=== PATIENT | female | born 1945 | race Caucasian/White ===

== ENCOUNTER 2017-02-20 07:30 | Inpatient (IN) | payer MEDICARE, BC ==
[2017-02-20] MEDS ORDERED: Tranexamic Acid 1,000 MG in Sodium Chloride 0.9% 50 ML IV SCH (10:15)
[2017-02-21] MEDS ORDERED: Gabapentin 300 MG Cap PO ONE (09:00)
[2017-02-21] MEDS ORDERED: Lactated Ringers 1,000 ML IV SCH (09:00)
[2017-02-21] MEDS ORDERED: Scopolamine 1.5 MG Transdermal Patch TRDERM SCH (09:00)
[2017-02-21] MEDS ORDERED: Povidone-Iodine 10% Soln 118.25 ML Bottle ONE (09:18)
[2017-02-21] MEDS ORDERED: Propofol 200 MG/20 ML SDV ONE ×2 (09:18→11:52)
[2017-02-21] MEDS ORDERED: fentaNYL 100 MCG/2 ML SDV ONE (09:18)
[2017-02-21] MEDS ORDERED: Midazolam 1 MG/ML 2 ML SDV ONE (09:18)
[2017-02-21] MEDS ORDERED: Gentamicin 40 MG/ML 2 ML Vial ONE (09:20)
[2017-02-21] MEDS ORDERED: ceFAZolin 2 GM in Sodium Chloride 0.9% 50 ML IV ONE (09:30)
[2017-02-21] MEDS ORDERED: Ketamine 500 MG/5 ML MDV IV ONE (10:15)
[2017-02-21] MEDS ORDERED: Ropivacaine 49.25 ML, Ketorolac 30 MG, EPINEPHrine 0.5 MG, cloNIDine 80 MCG, Sodium Chl... INJECT ONE ×5 (10:15)
[2017-02-21] MEDS: Tranexamic Acid 1,000 MG in Sodium Chloride 0.9% 50 ML IV SCH ×2 (10:50→12:57)
[2017-02-21] MEDS ORDERED: Lactated Ringers 1,000 ML ONE (12:19)
[2017-02-21] MEDS ORDERED: Bisacodyl 5 MG Tab PO PRN ×2 (12:45→13:41)
[2017-02-21] MEDS ORDERED: Ketorolac 30 MG/ML SDV IVPUSH PRN ×2 (12:45→13:41)
[2017-02-21] MEDS ORDERED: Aluminum Hydroxide/Magnesium Hydroxide/Simethicone Susp 30 ML Cup PO PRN ×2 (12:45→13:41)
[2017-02-21] MEDS ORDERED: Zolpidem 5 MG Tab PO PRN ×2 (12:45→13:41)
[2017-02-21] MEDS ORDERED: ceFAZolin 2 GM in Sodium Chloride 0.9% 50 ML IV SCH (12:45)
[2017-02-21] MEDS ORDERED: Morphine 2 MG/ML Syringe IVPUSH PRN ×2 (12:45→13:41)
[2017-02-21] MEDS ORDERED: traMADol 50 MG Tab PO PRN ×2 (12:45→13:41)
[2017-02-21] MEDS ORDERED: Sennosides 8.6 MG Tab PO PRN ×2 (12:45→13:41)
[2017-02-21] MEDS ORDERED: diphenhydrAMINE 50 MG/ML SDV IVPUSH PRN ×2 (12:45→13:41)
[2017-02-21] MEDS ORDERED: Magnesium Hydroxide 400 MG/5 ML Susp 30 ML Cup PO PRN ×2 (12:45→13:41)
[2017-02-21] MEDS ORDERED: Ondansetron 4 MG/2 ML SDV IVPUSH PRN ×2 (12:45→13:41)
[2017-02-21] MEDS ORDERED: Naloxone 0.4 MG/ML SDV IVPUSH PRN ×2 (12:45→13:41)
[2017-02-21] MEDS ORDERED: Acetaminophen 1,000 MG in Premix Bag 1 BAG IV ONE ×2 (12:45→14:30)
[2017-02-21] MEDS ORDERED: oxyCODONE 5 MG Tab PO PRN (12:45)
--- NOTE | 2017-02-21 13:43 | CR ---
Knee 1V or 2V Lt INDICATION: post op FINDINGS: Postoperative changes medial compartment hemiarthroplasty. Minimal hypertrophic change franklin llofemoral and lateral compartments. Negative for postoperative purposes.
[2017-02-21] MEDS ORDERED: OMEGA PO SCH (14:00)
[2017-02-21] MEDS ORDERED: FATTY ACIDS PO SCH (14:00)
[2017-02-21] MEDS ORDERED: VERIFY SCOPOLAMINE PATCH TOP SCH (14:00)
[2017-02-21] MEDS: Fish Oil/Omega-3 Fatty Acids 1 Gm Cap PO SCH ×2 (16:10→20:34)
[2017-02-21] MEDS: ceFAZolin 2 GM in Sodium Chloride 0.9% 50 ML IV SCH (17:07)
[2017-02-21] MEDS: oxyCODONE 5 MG Tab PO PRN (17:55)
--- NOTE | 2017-02-21 18:36 | OR ---
DATE OF PROCEDURE: 02/21/2017 PREOPERATIVE DIAGNOSIS: Left knee primary osteoarthritis. POSTOPERATIVE DIAGNOSIS: Left knee primary osteoarthritis. PROCEDURE: Left knee medial compartment arthroplasty. RECOOPERER: Junie Mesa NP. ANESTHESIA: Spinal plus conscious sedation. FLUID: Lactated Ringer solution. ESTIMATED BLOOD LOSS: 50 mL. COMPLICATIONS: None. SPECIMEN: None. DISCHARGE DISPOSITION: Stable to PACU. INSTRUMENTATION: Biomet Emmet knee, small femur size C tibia and 4 mm polyethylene insert. INDICATIONS: The patient is seen preoperatively in the clinic. She had failed nonoperative treatment. Preoperative imaging confirmed the above-mentioned diagnosis. Risks and benefits of the procedure were explained to the patient. Informed consent was obtained. DESCRIPTION OF PROCEDURE: The patient was seen preoperatively by myself and the Anesthesia Staff in the preoperative holding area where the operative site was marked. She was brought to the operative suite by the anesthesia staff where spinal anesthesia plus conscious sedation was administered. A well-padded tourniquet was placed on the left thigh. The right lower extremity was placed in the stirrup. All extremities were found to be well padded. The left lower extremity was then prepped and draped in a sterile manner. Time-out was called identifying the correct patient, correct procedure, the correct site, and antibiotics had begun within appropriate period of time. The left lower extremity was exsanguinated. Tourniquet was raised to 300 mmHg for 42 minutes and let down during cementing. A medial parapatellar incision was made from the tibial tubercle just proximal to the patella down to the deep fascia. Bleeding during the case was controlled with Bovie electrocautery as well as an Aquamantys unit. We then made a medial parapatellar arthrotomy. I then used Bovie electrocautery to remove the infrapatellar fat pad, medial meniscus, and exposed the medial proximal tibia. I used Gelpi for retraction. We then inserted a small size femoral spacer which provided a good contour of the femur. We then attached our tibial guide. We then lined up our tibial guide with the anterior superior iliac spine on the ipsilateral side. We pinned this in place and then I made a vertical side cut in line with the ASIS and then made my horizontal cut. We then removed, the bone was sized to the C. After this had been accomplished, we did insert a trial spacer at 7, which provided enough height in 15 degrees in flexion at least. We then drilled a small hole 1 cm anterior to the medial wall of the medial condyle and then inserted our intramedullary rosalva. I then inserted my femoral guide and attached this to the rosalva after marking a center for the medial condyle. We then made two drill holes in place. We then removed this and then placed our posterior, but our distal femoral cutting guide made our distal cut and removed those bone from this. I then placed on our femur and placed our tibia plate and then inserted a 3 mm insert in flexion and was unable to insert 1 spacer in extension. This was done after reaming with a zero spigot. We then reamed with a 3 spigot and then this was too tight, so I went to a 4 spigot. This provided good equal balance in flexion and extension. After this had been accomplished, we then prepared the femur by doing the posterior cuts, which there was very little posterior osteophyte as well as reaming for the anterior portion of the component on the femur. After this had been accomplished, we then inserted our tibial base plate with the guide for the saw-toothed cut. We used a spike to hold this in position. I made a saw to cut and then removed any excess bone. I then inserted my tibial component with the fin as well as the femoral component and inserted a 3 spacer. This provided good stability throughout range of motion. We then removed all of our components. We then copiously irrigated with saline and then cemented our components in place holding the knee in 15 degrees of flexion with a 4 spacer. After this had dried, I removed any excess cement and then trialed with a 4 spacer, which provided excellent stability. We then irrigated again and then inserted our final 4 polyethylene. This provided excellent stability throughout range of motion. We then closed our incision with #2 Stratafix, followed by 3-0 Stratafix, followed by skin [place], followed by sterile dressing. The patient was then transferred to her hospital bed and taken to the PACU in stable condition. Moe Oquendo DO /[id number]
[2017-02-21] MEDS: Metoprolol Tartrate 50 MG Tab PO SCH (20:32)
[2017-02-21] MEDS ORDERED: Docusate Sodium 100 MG Cap PO SCH ×2 (21:00)
[2017-02-21] MEDS ORDERED: METOPROLOL TARTRATE PO SCH (21:00)
[2017-02-22] MEDS: oxyCODONE 5 MG Tab PO PRN ×2 (00:06→07:48)
[2017-02-22] MEDS: ceFAZolin 2 GM in Sodium Chloride 0.9% 50 ML IV SCH ×2 (02:37→11:23)
[2017-02-22] MEDS ORDERED: Pantoprazole 40 MG Tab.CR PO SCH (07:30)
[2017-02-22] MEDS: Fish Oil/Omega-3 Fatty Acids 1 Gm Cap PO SCH (08:06)
[2017-02-22 08:07] VITALS: BP 140/66
[2017-02-22] MEDS: Metoprolol Tartrate 50 MG Tab PO SCH (08:07)
--- NOTE | 2017-02-22 08:07 | PCM.DCSUM1 ---
Discharge Summary - Discharge Data Discharge Date: 02/22/17 Discharge Disposition: Home, Self-Care 01 Condition: Good - Patient Summary/Data Operative Procedure(s) Performed: Left medial unicompartmental knee arthroplasty Consults: Consultations 02/21/17 12:45 OT Evaluation and Treatment [CONS] Routine Please Evaluate and Treat. OT Reason for Consult: Strengthening This query below is only for informational purposes and is not editable. PT Evaluation and Treatment [CONS] Routine Please Evaluate and Treat. PT Reason for Consult: Strengthening This query below is only for informational purposes and is not editable. - Patient Instructions Diet: Usual Diet as Tolerated Activity: Apply Ice, As Tolerated Driving: Do Not Drive Showering/Bathing: May Shower Wound/Incision Care: Keep Operative Site/Wound Site Clean and Dry, Change Dressing Daily Notify Provider of: Fever, Increased Pain, Swelling and Redness, Drainage, Nausea and/or Vomiting - Discharge Plan Prescriptions/Med Rec: Acetaminophen/oxyCODONE [Percocet 325-5 MG] 2 tab PO Q6HR PRN #90 tablet PRN Reason: pain Aspirin [Ecotrin] 325 mg PO DAILY #30 tab.ec Home Medications: Home Meds Aspirin [Adult Low Dose Aspirin EC] 81 mg PO DAILY 01/15/13 [History] Lisinopril 40 tab PO DAILY 01/15/13 [History] Metoprolol Tartrate [Lopressor] 100 tab PO BID 01/15/13 [History] [place]-3 Fatty Acids [Fish Oil] 500 mg PO TID 01/15/13 [History] Omeprazole [Prilosec] 20 mg PO DAILY 01/15/13 [History] Acetaminophen [Tylenol Extra Strength] 500 mg PO Q6H PRN 01/08/14 [History] Garlic 1,000 mg PO DAILY 01/08/14 [History] Ibuprofen 400 mg PO Q6H PRN 01/08/14 [History] Multivitamin [Multi-Vitamin Daily] 1 tab PO DAILY 01/12/14 [History] Nitroglycerin [Nitrostat] 0.4 mg SL ASDIRECTED PRN 03/22/16 [History] Acetaminophen/oxyCODONE [Percocet 325-5 MG] 2 tab PO Q6HR PRN #90 tablet [Rx] Aspirin [Ecotrin] 325 mg PO DAILY #30 tab.ec 02/21/17 [Rx] Referrals: Junie Mesa, [facility] [Nurse Practitioner] - (3 week recheck) - Discharge Summary/Plan Comment DC Time >30 min.: No Discharge Summary/Plan Comment: Pt admitted for left medial UKA. Left knee primary osteoarthritis. Kept postop for pain control, DVT prophylaxis, PT/OT. DC POD 1 good condition. f/u three weeks. - General Info Functional Status: Reports: Pain Controlled, Tolerating Diet, Ambulating, Urinating - Review of Systems General: Reports: No Symptoms HEENT: Reports: No Symptoms Pulmonary: Reports: No Symptoms Cardiovascular: Reports: No Symptoms Gastrointestinal: Reports: No Symptoms Genitourinary: Reports: No Symptoms Musculoskeletal: Reports: Leg Pain, Joint Pain Skin: Reports: No Symptoms Neurological: Reports: No Symptoms Psychiatric: Reports: No Symptoms - Patient Data Vitals - Most Recent: Last Vital Signs Temp 98.5 F 02/22/17 05:09 Pulse 55 L 02/22/17 05:09 Resp 16 02/22/17 05:09 BP 140/83 02/22/17 05:09 Pulse Ox 95 02/22/17 05:09 Weight - Most Recent: 210 lb I&O - Last 24 hours: Intake & Output 02/21/17 02/22/17 02/22/17 22:59 06:59 14:59 Intake Total 444 1000 Output Total 800 Balance -356 1000 Lab Results - Last 24 hrs: Laboratory Results - last 24 hr 02/21/17 02/22/17 02/22/17 Range/Units 09:07 05:14 05:14 WBC 10.1 (4.5-11.0) K/uL RBC 4.39 (3.30-5.50) M/uL Hgb 13.2 (12.0-15.0) g/dL Hct 39.9 (36.0-48.0) % MCV 91 (80-98) fL MCH 30 (27-31) pg MCHC 33 (32-36) % Plt Count 231 (150-400) K/uL Neut % (Auto) 66 (36-66) % Lymph % (Auto) 23 L (24-44) % [place] % (Auto) 9 H (2-6) % Eos % (Auto) 2 (2-4) % Baso % (Auto) 0 (0-1) % Sodium 141 (140-148) mmol/L Potassium 4.3 (3.6-5.2) mmol/L Chloride 108 (100-108) mmol/L Carbon Dioxide 26 (21-32) mmol/L Anion Gap 7.5 (5.0-14.0) mmol/L BUN 21 H (7-18) mg/dL Creatinine 0.9 (0.6-1.0) mg/dL Est Cr Clr Drug Dosing 54.45 mL/min Estimated GFR (MDRD) > 60 (>60) Glucose 104 (74-106) mg/dL Calcium 8.7 (8.5-10.1) mg/dL Total Bilirubin 0.3 (0.2-1.0) mg/dL AST 16 (15-37) U/L ALT 26 (12-78) U/L Alkaline Phosphatase 64 (46-116) U/L Total Protein 5.9 L (6.4-8.2) g/dL Albumin 2.6 L (3.4-5.0) g/dL Globulin 3.3 (2.3-3.5) g/dL Albumin/Globulin Ratio 0.8 L (1.2-2.2) Blood Type A POSITIVE Gel Antibody Screen Negative Med Orders - Current: Current Medications Al Hydroxide/Mg Hydroxide (Mag-Al Plus) 30 ml PO Q4H PRN PRN Reason: Constipation Aspirin (Ecotrin) 325 mg PO DAILY ANN Bisacodyl (Dulcolax) 10 mg PO DAILY PRN PRN Reason: Constipation Diazepam (Valium) 5 mg IVPUSH Q6H PRN PRN Reason: Spasms Diphenhydramine HCl (Benadryl) 25 mg IVPUSH Q4H PRN PRN Reason: Itching Docusate Sodium (Colace) 100 mg PO BID [facility] Last Admin: 02/21/17 20:33 Dose: 100 mg Fish Oil (Fish Oil) 1 gm PO TID [facility] Last Admin: 02/21/17 20:34 Dose: 1 gm Lactated Ringer's (Ringers, Lactated) 1,000 mls @ 100 mls/hr IV ASDIRECTED [facility] Last Admin: 02/21/17 09:22 Dose: 100 mls/hr Cefazolin Sodium 2 gm/ Sodium (Chloride) 50 mls @ 100 mls/hr IV Q8H [facility] Stop: 02/22/17 10:29 Last Admin: 02/22/17 02:37 Dose: 100 mls/hr Ketorolac Tromethamine (Toradol) 15 mg IVPUSH Q8H PRN PRN Reason: Pain Stop: 02/26/17 12:45 Lisinopril (Prinivil) 40 mg PO DAILY [facility] Magnesium Hydroxide (Milk Of Magnesia) 30 ml PO BID PRN PRN Reason: Constipation Metoprolol Tartrate (Lopressor) 100 mg PO BID [facility] Last Admin: 02/21/17 20:32 Dose: 100 mg Morphine Sulfate (Morphine) 2 mg IVPUSH Q2H PRN PRN Reason: Pain Naloxone HCl (Narcan) 0.1 mg IVPUSH ONETIME PRN PRN Reason: Oversedation Verify Scopolamine (Patch) 0 each TOP DAILY [facility] Last Admin: 02/21/17 14:33 Dose: Not Given (Garlic [Garlic] 1, (000 Mg)Pom) 1,000 mg PO DAILY [facility] Ondansetron HCl (Zofran) 8 mg IVPUSH Q4H PRN PRN Reason: Nausea/Vomiting Oxycodone HCl (Oxycodone) 10 mg PO Q4H PRN PRN Reason: Pain Stop: 02/22/17 12:45 Last Admin: 02/22/17 07:48 Dose: 10 mg Oxycodone/Acetaminophen (Percocet 325-5 Mg) 2 tab PO Q4H PRN PRN Reason: Pain Pantoprazole Sodium (Protonix) 40 mg PO ACBREAKFAST [facility] Last Admin: 02/22/17 07:49 Dose: 40 mg Scopolamine (Transderm-Scop) 1.5 mg TRDERM Q72H [facility] Stop: 02/24/17 07:00 Last Admin: 02/21/17 08:58 Dose: 1.5 mg Senna (Senna) 8.6 mg PO BID PRN PRN Reason: Constipation Sodium Chloride (Saline Flush) 10 ml FLUSH DAILY [facility] Tramadol HCl (Ultram) 100 mg PO Q6H PRN PRN Reason: Pain Zolpidem Tartrate (Ambien) 5 mg PO BEDTIME PRN PRN Reason: Sleep Discontinued Medications Al Hydroxide/Mg Hydroxide (Mag-Al Plus) 30 ml PO Q4H PRN PRN Reason: Constipation Aspirin (Ecotrin) 325 mg PO DAILY [facility] Bisacodyl (Dulcolax) 10 mg PO DAILY PRN PRN Reason: Constipation Ropivacaine 49.25 ml/Ketorolac Tromethamine 30 mg/Epinephrine HCl 0.5 mg/ Clonidine HCl 80 mcg/ Sodium Chloride 48.45 ml 0 ml INJECT ONETIME ONE Stop: 02/21/17 10:16 Last Admin: 02/21/17 11:57 Dose: 100 ml Diazepam (Valium) 5 mg IVPUSH Q6H PRN PRN Reason: Spasms Diphenhydramine HCl (Benadryl) 25 mg IVPUSH Q4H PRN PRN Reason: Itching Docusate Sodium (Colace) 100 mg PO BID [facility] Fentanyl (Sublimaze) Confirm Administered Dose 100 mcg .ROUTE .STK-MED ONE Stop: 02/21/17 09:19 Gabapentin (Neurontin) 300 mg PO ONETIME ONE Stop: 02/21/17 09:01 Last Admin: 02/21/17 08:58 Dose: 300 mg Gentamicin Sulfate (Gentamicin) Confirm Administered Dose 240 mg .ROUTE .STK- MED ONE Stop: 02/21/17 09:21 Last Admin: 02/21/17 11:39 Dose: 240 mg Tranexamic Acid 1,000 mg/ (Sodium Chloride) 60 mls @ 240 mls/hr IV Q2H [facility] Stop: 02/21/17 12:29 Last Admin: 02/21/17 12:57 Dose: 240 mls/hr Cefazolin Sodium 2 gm/ Sodium (Chloride) 50 mls @ 100 mls/hr IV ONETIME ONE Stop: 02/21/17 09:59 Last Admin: 02/21/17 10:49 Dose: 100 mls/hr Lactated Ringer's (Ringers, Lactated) Confirm Administered Dose 1,000 mls @ as directed .ROUTE .STK-MED ONE Stop: 02/21/17 12:20 Acetaminophen 1,000 mg/ Premix 100 mls @ 400 mls/hr IV NOW ONE Stop: 02/21/17 12:59 Last Admin: 02/21/17 14:38 Dose: Not Given Cefazolin Sodium 2 gm/ Sodium (Chloride) 50 mls @ 100 mls/hr IV Q8H [facility] Stop: 02/22/17 05:14 Last Admin: 02/21/17 14:38 Dose: Not Given Acetaminophen 1,000 mg/ Premix 100 mls @ 400 mls/hr IV ONETIME ONE Stop: 02/21/17 14:44 Last Admin: 02/21/17 14:50 Dose: 400 mls/hr Ketamine HCl (Ketalar) 30 mg IV ONETIME ONE Stop: 02/21/17 10:16 Last Admin: 02/21/17 14:32 Dose: Not Given Ketorolac Tromethamine (Toradol) 15 mg IVPUSH Q8H PRN PRN Reason: Pain Stop: 02/26/17 12:45 Magnesium Hydroxide (Milk Of Magnesia) 30 ml PO BID PRN PRN Reason: Constipation Midazolam HCl (Versed 1 Mg/Ml) Confirm Administered Dose 2 mg .ROUTE .STK-MED ONE Stop: 02/21/17 09:19 Morphine Sulfate (Morphine) 2 mg IVPUSH Q2H PRN PRN Reason: Pain Naloxone HCl (Narcan) 0.1 mg IVPUSH ONETIME PRN PRN Reason: Oversedation Non-Formulary Medication (Garlic [Garlic]) 1,000 mg PO DAILY ANN Non-Formulary Medication (Lisinopril [Lisinopril]) 40 tab PO DAILY ANN Non-Formulary Medication (Metoprolol Tartrate [Lopressor]) 100 tab PO BID ANN Non-Formulary Medication ([place]-3 Fatty Acids [Fish Oil]) 500 mg PO TID ANN Non-Formulary Medication (Omeprazole [Prilosec]) 20 mg PO DAILY ANN Ondansetron HCl (Zofran) 8 mg IVPUSH Q4H PRN PRN Reason: Nausea/Vomiting Oxycodone HCl (Oxycodone) 10 mg PO Q4H PRN PRN Reason: Pain Stop: 02/22/17 12:45 Oxycodone/Acetaminophen (Percocet 325-5 Mg) 2 tab PO Q4H PRN PRN Reason: Pain Povidone Iodine (Betadine 10% Soln) Confirm Administered Dose 1 ml .ROUTE .STK- MED ONE Stop: 02/21/17 09:19 Last Admin: 02/21/17 11:39 Dose: 40 ml Propofol (Diprivan 20 Ml) Confirm Administered Dose 200 mg .ROUTE .STK-MED ONE Stop: 02/21/17 09:19 Propofol (Diprivan 20 Ml) Confirm Administered Dose 200 mg .ROUTE .STK-MED ONE Stop: 02/21/17 11:53 Senna (Senna) 8.6 mg PO BID PRN PRN Reason: Constipation Sodium Chloride (Saline Flush) 10 ml FLUSH DAILY ANN Tramadol HCl (Ultram) 100 mg PO Q6H PRN PRN Reason: Pain Zolpidem Tartrate (Ambien) 5 mg PO BEDTIME PRN PRN Reason: Sleep - Exam General: Reports: Alert, Oriented HEENT: Reports: Pupils Equal, Pupils Reactive, EOMI, Mucous Membr. Moist/[place] Neck: Reports: Supple Lungs: Reports: Normal Respiratory Effort Extremities: Normal Inspection, Leg Pain, Limited Range of Motion Skin: Reports: Warm, Dry, Intact Wound/Incisions: Reports: Dressing Dry and Intact, No Drainage Neurological: Reports: No New Focal Deficit Psy/Mental Status: Reports: Alert, Normal Affect, Normal Mood Discharge Operative/Procedures - Procedures Performed Operations/Procedure Comment: Left knee UKA *Q Meaningful Use (DIS) - VTE *Q VTE Criteria *Q: - Stroke *Q Stroke Criteria *Q: - AMI *Q AMI Criteria *Q:
[2017-02-22] MEDS ORDERED: Non-Formulary Medication 1 Each (Omeprazole [Prilosec] 20 MG) PO SCH (09:00)
[2017-02-22] MEDS ORDERED: Aspirin 325 MG Tab.EC PO SCH ×2 (09:00→12:45)
[2017-02-22] MEDS ORDERED: Lisinopril 20 MG Tab PO SCH (09:00)
[2017-02-22] MEDS ORDERED: Sodium Chloride 0.9% 10 ML Syringe FLUSH SCH ×2 (09:00)
[2017-02-22] MEDS ORDERED: LISINOPRIL PO SCH (09:00)
[2017-02-22] MEDS ORDERED: GARLIC 1000 MG PO SCH ×2 (09:00)
[2017-02-22] MEDS ORDERED: Acetaminophen/oxyCODONE 325-5 MG Tab PO PRN ×2 (12:45)
== END 2017-02-22 14:01 | disposition home or self-care (01) | DRG 470 ==
LOC: JP.SDSSCHI 02-21 08:27 → JP.SDS 02-21 08:27 → EDSTATUS 02-21 08:30 → JP.ICU 02-21 13:30
PROVIDERS: ADMIT Orthopaedic Surgery; ATTEND Orthopaedic Surgery
PROC: 0SRD0L9 Replacement of Left Knee Joint with Medial Unicondylar Synthetic Substitute, Cemented, Open Approach (ICD-10-PCS; principal; 2017-02-21)
DX: M17.12 Unilateral primary osteoarthritis, left knee (principal); Z79.82 Long term (current) use of aspirin; Z88.8 Allergy status to other drugs, medicaments and biological substances
CPT/HCPCS: 36415; 73560-26-LT; 73560-LT; 80053; 85025; 86850; 86900; 86901; 94762; 97110-GP; 97162-GP; 97165-GO; 97530-GP; A9270-GY; C1713; C1776; J0131; J0171; J0690; J0735; J1580; J1885; J2250; J2270; J2704; J2795; J3010; J7050; J7120

== ENCOUNTER 2022-02-05 19:20 | Emergency (ER) | payer BC, MEDICARE ==
[2022-02-05 19:40] VITALS: BP 151/81; PULSE 79
== END 2022-02-05 20:50 | disposition home or self-care (01) ==
LOC: JP.ED 19:20
DX: R07.81 Pleurodynia (principal); I48.91 Unspecified atrial fibrillation; E78.00 Pure hypercholesterolemia, unspecified; I10 Essential (primary) hypertension; E66.9 Obesity, unspecified; Z68.38 Body mass index [BMI] 38.0-38.9, adult; Z88.8 Allergy status to other drugs, medicaments and biological substances; Z79.899 Other long term (current) drug therapy; Z79.82 Long term (current) use of aspirin; W10.8XXA Fall (on) (from) other stairs and steps, initial encounter
CPT/HCPCS: 71101-26-RT; 71101-RT; 99283

== ENCOUNTER 2022-03-14 17:33 | Emergency (ER) | payer MEDICARE ==
[2022-03-14 17:43] VITALS: BP 154/81; PULSE 68
[2022-03-14] MEDS ORDERED: Ondansetron 4 MG Tab.DIS PO ONE (18:30)
[2022-03-14] MEDS ORDERED: Meclizine 25 MG Tab PO ONE (18:31)
== END 2022-03-14 19:19 | disposition home or self-care (01) ==
LOC: JP.ED 17:33
DX: E86.0 Dehydration (principal); G20 Parkinson's disease; R11.2 Nausea with vomiting, unspecified; I48.91 Unspecified atrial fibrillation; I10 Essential (primary) hypertension; E66.9 Obesity, unspecified; Z68.36 Body mass index [BMI] 36.0-36.9, adult; Z88.8 Allergy status to other drugs, medicaments and biological substances; Z79.82 Long term (current) use of aspirin; Z79.899 Other long term (current) drug therapy
CPT/HCPCS: 36415; 80048; 81001; 85025; 99284

== ENCOUNTER 2022-07-27 07:48 | Day surgery (SDC) | payer MEDICARE ==
[2022-07-27] MEDS ORDERED: Sodium Chloride 0.9% 10 ML Syringe FLUSH PRN (08:00)
[2022-07-27 09:25] VITALS: BP 146/76; PULSE 65
== END 2022-07-27 09:35 | disposition home or self-care (01) ==
LOC: JP.SDS 07:48
PROVIDERS: ATTEND Ophthalmology
DX: H26.9 Unspecified cataract (principal); E66.9 Obesity, unspecified; I47.1 Supraventricular tachycardia; Z79.899 Other long term (current) drug therapy; Z88.8 Allergy status to other drugs, medicaments and biological substances; Z68.38 Body mass index [BMI] 38.0-38.9, adult
CPT/HCPCS: 66984; J3490